=== PATIENT | male | born 1995 | race African-American/Black ===

== ENCOUNTER 2018-04-28 03:40 | Emergency (ER) | payer OTHER, SELFPAY ==
[2018-04-28] MEDS ORDERED: Morphine 4 MG/ML VIAL ONE (04:22)
[2018-04-28] MEDS ORDERED: Water For Inject, Bacteriostat 30 ML ONE (04:44)
[2018-04-28] MEDS ORDERED: CEFAZOLIN 1 GM VIAL ONE (04:44)
[2018-04-28] MEDS ORDERED: Adacel (T-DAP) 0.5 ML SYRINGE ONE (04:56)
--- NOTE | 2018-04-28 07:58 | RAD ---
RIGHT FORELEG 2 VIEWS: Date: 04/28/18 INDICATION: Injury. IMPRESSION: There is a retained metallic foreign body within the proximal inner osseous syndesmotic region. No ac tribal fracture or subluxation is evident. POS: [facility]
== END 2018-04-28 05:16 ==
LOC: ERS 03:40
DX: S81.801A Unspecified open wound, right lower leg, initial encounter (principal); X95.9XXA Assault by unspecified firearm discharge, initial encounter; Y92.149 Unspecified place in prison as the place of occurrence of the external cause
CPT/HCPCS: 90471; 90715; 96372; J0690; J2270

== ENCOUNTER 2020-05-23 02:15 | Emergency (ER) | payer SELFPAY | END 2020-05-23 04:08 | disposition home or self-care (01) | LOC: ERS 02:15 | DX: S93.402A Sprain of unspecified ligament of left ankle, initial encounter (principal); X50.1XXA Overexertion from prolonged static or awkward postures, initial encounter; Y93.67 Activity, basketball ==